=== PATIENT | female | born 1955 | race Caucasian/White ===

== ENCOUNTER 2019-04-25 10:15 | Emergency (ER) | payer OTHER, SELFPAY ==
--- NOTE | ~2019-04-25 | US_ITS ---
US venous doppler [facility] DATE: 04/25/2019 11:48 INDICATION: Bilateral lower extremity swelling TECHNIQUE: Real-time imaging, color flow imaging and Doppler analysis of the veins of the lower extre mities COMPARISON: None FINDINGS: The greater saphenous veins are patent. There is spontaneous and phasic flow and normal aug mentation and color flow signal and normal compression of the deep veins of both lower extremities. IMPRESSION: No evidence of deep venous thrombosis of the legs Reviewed, dictated and finalized at [facility]. Reviewed, dictated and finalized at [facility]. WORKER
--- NOTE | ~2019-04-25 | CT_ITS ---
EXAMINATION: CTA chest PE protocol DATE: 04/25/2019 14:03 INDICATION: Dyspnea. Metastatic cancer. TECHNIQUE: Computed tomography angiography (CTA) of the chest was performed with 100 mL Omnipaque-350 intravenous contrast timed to evaluate the pulmonary arteries. Coronal maximum intensity projection 3D-reconstructions were created by the technologist. Automated exposure control and iterative reconst ruction technique were employed. Exam dose: 347.66 mGy-cm total exam DLP. COMPARISON: None. FINDINGS: There is diagnostic contrast enhancement of the pulmonary arteries and no evidence of pulmo nary embolism. No thoracic aortic aneurysm or dissection. No hilar or mediastinal mass lesion or lymphadenopathy. Normal heart size. No pericardial effusion. Minimal right pleural effusion. There is heterogeneous echotexture of liver suggesting extensive hepatic metastatic disease. There ar e numerous hepatic cysts of variable size, some quite large. There is an asymmetric 2 x 1 cm upper mid left breast soft tissue mass apparently. There is prominent bilateral lower lobe atelectasis. There is lesser lingular discoid atelectasis. Pathologic minimally displaced left lateral fifth rib fracture. Posterior right second rib fracture. There is extensive destruction of the left side of the T8 vertebral body and left T8 pedicle. There are L1 vertebral body and left L1 pedicle lytic lesions. Result is a surgical cc low IMPRESSION: No evidence of pulmonary embolism Lingular and prominent bilateral lower lobe atelectasis Probable extensive hepatic metastatic disease Multiple hepatic cysts Skeletal metastases Probable 2.1 cm upper mid left breast mass Reviewed, dictated and finalized at [facility]. Reviewed, dictated and finalized at [facility]. PRESS HAND
--- NOTE | ~2019-04-25 | XR_ITS ---
XR chest 2V DATE: 04/25/2019 11:29 INDICATION: Dyspnea. Bilateral leg swelling for 2 to 3 days. TECHNIQUE: PA and lateral views COMPARISON: 01/31/2015 2 view chest FINDINGS: There is bibasilar atelectasis. The lungs otherwise are clear. No pleural effusion or pulmo nary vascular congestion or pneumothorax. Normal heart size. No hilar or mediastinal enlargement. Prominent thoracolumbar scoliosis. Moderate osteopenia. IMPRESSION: Bibasilar atelectasis Reviewed, dictated and finalized at [facility]. LATION PROFESSIONAL IMPRESSION: Bibasilar atelectasis
--- NOTE | 2019-04-25 10:19 | ECG_ITS ---
Measurements Intervals [place] Rate: 93 P: 67 DE: 150 QRS: -7 QRSD: 97 T: -5 QT: 326 QTc: 406 Interpretive Statements SINUS RHYTHM WITH SINUS ARRHYTHMIA ATRIAL PREMATURE COMPLEX DELAYED PRECORDIAL R/S TRANSITION INFERIOR INFARCT, AGE INDETERMINATE BORDERLINE T WAVE ABNORMALITY- ANTERIOR LEADS ABNORMAL ECG Electronically Signed On 04-25-2019 16:35:49 COLOR TECHNICIAN by Godfrey Cohen D.O.
[2019-04-25 10:23] VITALS: BP 136/91; PULSE 98; RESP 18; TEMP 36.8; O2SAT 100
[2019-04-25 10:30] LABS: Glucose Point of Care 110 (65-105)
--- NOTE | 2019-04-25 11:02 | ED.GENADULT ---
HPI - General Adult General Chief complaint: Unspecified Stated complaint: BILATERAL LEG SWELLING AND SOB Time Seen by Provider: 04/25/19 11:02 Source: patient Mode of arrival: ambulatory Limitations: no limitations History of Present Illness HPI narrative: A 63 y/o female presents to the ED with c/o BLE edema. Pt states that 3 days ago the BLE edema started and has been constant since. She notes that on 03/17/19 she started to have episodes of ABD pain, N/V/D, and migraines. She notes that the diarrhea was constant, and she was evaluated at [place] [facility] on 04/16/19. After that visit, she was diagnosed with metastatic breast cancer to her liver and bones. Since then, she has seen Dr. Braden and and Dr. Frye. She adds that Dr. Frye is currently working on markers and she has not had a PET scan yet. The patients family called Dr. Braden's office last night and the javascript front end developer doctor advised that the patient be evaluated at the ED. Pt reports ABD pain, SOB, productive cough, and diarrhea, but denies CP, N/V, and fever. The SOB started 1 week ago and has been constant since. Her cough produces a clear mucus. She notes that she takes Imodium for the diarrhea with no relief. complaint: BLE edema Onset (ago): day(s) (3) Location: lower extremity Associated symptoms: cough (Productive), shortness of breath and other (ABD pain, diarrhea) Related Data Allergies Allergy/AdvReac Type Severity Reaction Status Date / Time kiwi Allergy Swelling Verified 04/25/19 10:28 of Lip/Tongue/Throat morphine AdvReac Unknown Verified 04/25/19 10:29 Review of Systems Review of Systems: All systems reviewed & are unremarkable except as noted in HPI and below Constitutional: Constitutional: Denies fever(s) Cardiovascular: Cardiovascular: Denies chest pain and Reports leg edema (BLE) Respiratory: Respiratory: Reports cough (Productive) and Reports dyspnea Gastrointestinal: Gastrointestinal: Reports abdominal pain, Reports diarrhea, Denies nausea and Denies vomiting PMFSH Past Medical History Medical History (Updated 04/25/19 @ 15:38 by Amarilis Nunez MD) Abdominal pain Acute hyponatremia Bone metastases Breast mass Cancer, metastatic to liver Hypoglycemia Incomplete rotation intestine Invasive ductal carcinoma of breast, stage 3 Nausea & vomiting Nephrolithiasis Pleural effusion associated with hepatic disorder Surgical History Surgical History No pertinent past surgical history Family History Family History Sibling Patient's sister is in good health Patient's brother is in good health Father , at 78 due to PD. Family history of Parkinson's disease, Onset Age: 71 Social History Social History Smoking status: Never smoker Alcohol intake: never Substance use: never Substance use type: does not use Gender identity (if verbalized by the patient): Female Spiritual care concerns: No Agree to blood products: Yes Exam Const: General: cooperative, no acute distress and alert Nutritional Appearance: well nourished Orientation/consciousness: patient oriented x3 Limitations: no limitations HENMT: Mouth: Yes lip normal and Yes moist mucous membranes Eyes: Conjunctivae: conjunctival abnormality bilateral conjunctival icterus Resp: Effort & Inspection: normal respiratory effort Auscultation: diminished lung sounds on the left in the lower lung mayes Cardio: Rate: tachycardic Rhythm: abnormal rhythm with ectopic beats (Occasional) Peripheral pulses: dorsalis pedis present bilateral 2+ GI: Inspection: other (Abdominal distension) GI Palp: Yes Firmness to palpation present (GI), Yes Tenderness to palpation present (GI) and Yes Hepatomegaly present Auscultation: normal bowel sounds Skin: General skin exam: jaundice and petechiae (Faint across trunk and
[2019-04-25 11:20] LABS: Basophils Percent Auto 0.4 % (0.2-1.2); Eosinophils Absolute Auto 0.1 K/mm3 (0-0.3); Eosinophils Percent Auto 0.5 % (0-4.4); Hematocrit 42.8 % (37.0-47.0); Hemoglobin 14.4 g/dL (12.0-15.0); Immature Granulocyte Absolute 0.05 K/mm3 (0.00-0.031); Immature Granulocyte Percent A 0.5 % (0-0.5); Lymphocytes Absolute Auto 1.11 K/mm3 (0.9-3.2); Mean Corpuscular HGB Conc 33.6 g/dl (32-36); Mean Corpuscular Volume 86.1 fl (80-100); Mean Platelet Volume 11.4 fl (7.4-10.4); Monocytes Absolute Auto 0.8 K/mm3 (0.1-0.6); Monocytes Percent Auto 8.1 % (2.6-8.5); Neutrophils Percent Auto 79.5 % (45.5-73.1); Platelet Count Result 314 k/mm3 (150-375); Red Blood Count 4.97 M/mm3 (4.2-5.4); Red Cell Distribution Width 20.9 % (11.5-14.5); White Blood Count 10.1 K/mm3 (4.5-10.0)
[2019-04-25 11:25] LABS: Add Urine Microscopic? YES; Appearance Urine Clear (Clear); Bilirubin Urine 1+ (Negative); Blood Urine Negative (Negative); Color Urine Amber (Yellow); Glucose Urine UA Negative (Negative); Hyaline Casts Urine 20-29 /lpf; Ketones Urine Negative (Negative); Leukocyte Esterase Ur Trace LEU/UL (Negative); Mucus Urine Rare /lpf; Nitrate Urine Negative (Negative); Protein Urine Negative (Negative); RBC Urine 0-2 /hpf (0-2); Specific Grav Ur 1.018 (1.001-1.035); Squamous Epithelial Cell Urine Few /hpf (Few)
[2019-04-25 11:30] LABS: Lactic Acid Reflex 3.8 mmol/L (0.7-2.1)
[2019-04-25 11:32] LABS: Alanine Aminotransferase 117 U/L (4-35); Albumin Level 3.3 g/dL (3.5-5.1); Alkaline Phosphatase 986 U/L (38-126); Aspartate Amino Transferase 470 U/L (14-36); Bilirubin,Total 9.6 mg/dL (0.2-1.3); Blood Urea Nitrogen 29 mg/dL (7-17); Calcium 10.5 mg/dL (8.4-10.2); Carbon Dioxide 25 mmol/L (22-30); Chloride 94 mmol/L (98-107); Estimated CRCL calculation 33 ml/min; Estimated Glomerular Filt Rate 35; Glucose 118 mg/dL (65-105); Lipase 37 U/L (23-300); Potassium 4.6 mmol/L (3.4-5.0); Sodium 134 mmol/L (137-145)
[2019-04-25 11:43] LABS: INR 1.1; Partial Thromboplastin Time 28.8 SECONDS (22.3-36.8); Prothrombin Time 14.1 Seconds (11.1-14.7)
[2019-04-25 11:54] VITALS: BP 125/90; PULSE 99; RESP 20; O2SAT 97
[2019-04-25 12:21] LABS: Magnesium 2.1 mg/dL (1.6-2.3)
[2019-04-25 12:32] LABS: NT Pro B Type Natriuretic Pept 591 PG/ML (5-100)
[2019-04-25 13:36] VITALS: BP 125/80; PULSE 109; RESP 26; O2SAT 97
[2019-04-25 14:13] LABS: Reflex Lactic Acid Yes or No Add Lactic
[2019-04-25 14:46] LABS: Lactic Acid 2.7 mmol/L (0.7-2.1)
[2019-04-25 14:59] VITALS: BP 112/76; PULSE 109; RESP 26; O2SAT 97
[2019-04-25 15:33] VITALS: BP 127/85; PULSE 108; RESP 21; O2SAT 96
== END 2019-04-25 16:10 | disposition home or self-care (01) ==
PROVIDERS: Emergency Provider Emergency Medicine; PCP Family Medicine
DX: C50.919 Malignant neoplasm of unspecified site of unspecified female breast (principal); C78.7 Secondary malignant neoplasm of liver and intrahepatic bile duct; C79.51 Secondary malignant neoplasm of bone; Z87.442 Personal history of urinary calculi; I49.1 Atrial premature depolarization; R94.31 Abnormal electrocardiogram [ECG] [EKG]; R91.8 Other nonspecific abnormal finding of lung field
CPT/HCPCS: 36415; 71046; 71275; 80053; 81001; 83605; 83690; 83735; 83880; 84100; 85025; 85610; 85730; 93005; 93970; 99284; Q9967